=== PATIENT | female | born 1965 | race Caucasian/White ===

== ENCOUNTER 2016-07-08 16:21 | Emergency (ER) | payer MEDICARE, BC ==
[~2016-07-08] VITALS: Ht 154.9 cm; Wt 80.0 kg
[~2016-07-08 16:21] MED LIST: ADVAI100I INH; ALBU0.086 NEB; BIOT300T PO; BUSP7.5T4 PO; CLON1TAB PO; CYMB30CA PO; FLUT50SP EACH NARE; HYDR0.1S8 PO; IBUP800 PO; LEVO.1 PO; OMEP20TA PO; ONDA4 PO; OXYC5 PO; PRED20 PO; ZYRT10TA12 PO
[2016-07-08 16:24] VITALS: BP 138/90; PULSE 120; RESP 20; TEMP 98; O2SAT 97
--- NOTE | 2016-07-08 17:06 | PD ---
Physical Exam Time Seen by Provider: 17:06 Narrative 51 year old female presents to ED for evaluation. History of asthma and COPD. No longer smoking tobacco cigarettes. Recently finished second round of treatment for pneumonia. Cousin was just diagnosed with streptococcal pneumonia and is in ICU. Pt states that Dr. Rodriguez advised she come to ED for re- evaluation. Continues to have cough. Subjective fever and chills. N/V. no diarrhea. Data Data Last Documented VS Vital Signs Date Time Temp Pulse Resp B/P Pulse Ox O2 Delivery O2 Flow Rate FiO2 07/08/16 16:24 98.0 120 20 138/90 97 Room Air Orders Complete Blood Count With Diff (07/08/16 17:12) Basic Metabolic Panel (Bmp) (07/08/16 17:12) Chest, Single Ap (07/08/16 ) Labs Laboratory Tests Test 07/08/16 18:05 White Blood Count 16.7 TH/MM3 Red Blood Count 4.75 MIL/MM3 Hemoglobin 14.5 GM/DL Hematocrit 43.2 % Mean Corpuscular Volume 91.1 FL Mean Corpuscular Hemoglobin 30.6 PG Mean Corpuscular Hemoglobin 33.6 % Concent Red Cell Distribution Width 14.4 % Platelet Count 311 TH/MM3 Mean Platelet Volume 8.0 FL Neutrophils (%) (Auto) 82.8 % Lymphocytes (%) (Auto) 12.2 % Monocytes (%) (Auto) 4.3 % Eosinophils (%) (Auto) 0.3 % Basophils (%) (Auto) 0.4 % Neutrophils # (Auto) 13.8 TH/MM3 Lymphocytes # (Auto) 2.0 TH/MM3 Monocytes # (Auto) 0.7 TH/MM3 Eosinophils # (Auto) 0.0 TH/MM3 Basophils # (Auto) 0.1 TH/MM3 CBC Comment DIFF FINAL Differential Comment Sodium Level 137 MEQ/L Potassium Level 3.8 MEQ/L Chloride Level 102 MEQ/L Carbon Dioxide Level 26.8 MEQ/L Anion Gap 8 MEQ/L Blood Urea Nitrogen 15 MG/DL Creatinine 1.01 MG/DL Estimat Glomerular Filtration 58 ML/MIN Rate Random Glucose 97 MG/DL Calcium Level 8.9 MG/DL [facility] Medical Record Reviewed: Yes Supervised Visit with MARLA: No Narrative Course Work up initiated in triage. Condition: Stable Tayler Webster Jul 08, 2016 17:06
--- NOTE | 2016-07-08 18:30 | RADRPT ---
EXAM DATE/TIME: 07/08/2016 18:04 [facility] COMPARISON: No previous studies available for comparison. INDICATIONS : Fever. MEDICAL HISTORY : Chronic obstructive pulmonary disease. asthma, recent pneumonia diagnosis. SURGICAL HISTORY : CABG. ENCOUNTER: [facility] ACUITY: 1 month PAIN SCORE: 0/10 LOCATION: Bilateral chest FINDINGS: A single view of the chest demonstrates the lungs to be symmetrically aerated without evidence of mas s, infiltrate or effusion. Status post CABG. The cardiomediastinal contours are unremarkable. [place] us structures are intact. CONCLUSION: No acute disease. Darshan Hatfield MD on July 08, 2016 at 18:28 Board Certified Radiologist. This report was verified electronically.
[2016-07-08 18:52] LABS: AUTOMATED NEUTROPHIL # 13.8 TH/MM3 (1.8-7.7); BASOPHIL # 0.1 TH/MM3 (0-0.2); BASOPHIL % 0.4 % (0.0-2.0); EOSINOPHIL % 0.3 % (0.0-4.0); HEMATOCRIT 43.2 % (35.0-46.0); HEMO FLAGS DIFF FINAL; LYMPH % 12.2 % (9.0-44.0); MEAN CELL VOLUME 91.1 FL (80.0-100.0); MEAN CORPUSCULAR HEMOGLOBIN 30.6 PG (27.0-34.0); MEAN CORPUSCULAR HGB CONC 33.6 % (32.0-36.0); MONO % 4.3 % (0.0-8.0); NEUT % 82.8 % (16.0-70.0); PLATELET COUNT 311 TH/MM3 (150-450); RED BLOOD COUNT 4.75 MIL/MM3 (4.00-5.30); RED CELL DISTRIBUTION WIDTH 14.4 % (11.6-17.2); WHITE BLOOD COUNT 16.7 TH/MM3 (4.0-11.0)
[2016-07-08 19:09] LABS: BICARBONATE 26.8 MEQ/L (21.0-32.0); POTASSIUM 3.8 MEQ/L (3.5-5.1)
[2016-07-08 19:53] VITALS: BP 114/59; PULSE 72; RESP 18; TEMP 98.4; O2SAT 97
[2016-07-08] MEDS ORDERED: TUSSSUS2 PO (20:31)
--- NOTE | 2016-07-08 20:32 | PD ---
HPI . Patient presents stating that she has had pneumonia since May. Chief Complaint: Respiratory Symptoms Time Seen by Provider: 20:11 Travel History International Travel<30 days: No Contact w/Intl Traveler<30days: No Traveled to known affect area: No History of Present Illness HPI Patient states that she has had cough and shortness of breath since May. She states that she was diagnosed with pneumonia in [place] and treated with a Z-Nicolas and prednisone. Her symptoms persisted so she saw her primary care provider about a week ago was treated with Levaquin and another prednisone taper. Both prednisone tapers for 10 day long tapers. Despite that, her symptoms persist. She states she got a phone call today that she has a niece he 's been in the ICU [place] with strep pneumonia. She called her doctor's office with this information this afternoon and was instructed to come here for further evaluation. Her major symptom is persistent congested cough. She also reports some subjective fevers. She does not have any sputum production. Patient has a history of COPD and is on several medications for same. PFSH Past Medical History Arthritis: Yes Asthma: Yes Anxiety: Yes Depression: Yes COPD: Yes Diminished Hearing: No Endocrine: Yes (PITUITARY INSUFFICIENCY) Fibromyalgia: Yes Gastrointestinal Disorders: Yes (IBS WITH CONSTIPATION) Headaches: Yes Respiratory: Yes (PNEUMONIA ) Immunizations Current: Yes Tetanus Vaccination: < 5 Years Influenza Vaccination: Yes ?: Not Past Surgical History Abdominal Surgery: Yes (HERNIA REPAIR) Genitourinary Surgery: Yes (urethral stenting as child) Gynecologic Surgery: Yes (DERMOIDS REMOVED FROM OVARIES) Hysterectomy: Yes Other Surgery: Yes (sternotomy) Social History Alcohol Use: Yes (RARELY) Tobacco Use: No Substance Use: No Allergies-Medications (Allergen,Severity, Reaction): Coded Allergies: Contrast Media (Verified Allergy, Severe, 07/08/16) ANAPHYLAXIS Sulfa (Verified Allergy, Severe, 07/08/16) HIVES Trazodone (Verified Allergy, Severe, 07/08/16) HIVES Reported Meds & Prescriptions Reported Meds & Active Scripts Active Review of Systems Except as stated in HPI: all other systems reviewed are Neg General / Constitutional: Positive: Fever, Chills Respiratory: Positive: Cough, Shortness of Breath Physical Exam Narrative GENERAL: Patient is able to speak in complete sentences without any respiratory difficulty. SKIN: Warm and dry. HEAD: Atraumatic. Normocephalic. EYES: Pupils equal and round. ENT: No nasal bleeding or discharge. Mucous membranes pink and moist. NECK: Trachea midline. CARDIOVASCULAR: Regular rate and rhythm. Heart sounds are normal. RESPIRATORY: No accessory muscle use. Lungs are clear with full air movement throughout. GASTROINTESTINAL: Abdomen soft, non-tender, nondistended. MUSCULOSKELETAL: No obvious deformities. No edema. NEUROLOGICAL: Awake and alert. No obvious cranial nerve deficits. Motor grossly within normal limits. Normal speech. PSYCHIATRIC: Appropriate mood and affect; insight and judgment normal. Data Data Last Documented VS Vital Signs Date Time Temp Pulse Resp B/P Pulse Ox O2 Delivery O2 Flow Rate FiO2 07/08/16 19:53 98.4 72 18 114/59 97 Room Air Orders Complete Blood Count With Diff (07/08/16 17:12) Basic Metabolic Panel (Bmp) (07/08/16 17:12) Chest, Single Ap (07/08/16 ) Labs Laboratory Tests Test 07/08/16 18:05 White Blood Count 16.7 TH/MM3 Red Blood Count 4.75 MIL/MM3 Hemoglobin 14.5 GM/DL Hematocrit 43.2 % Mean Corpuscular Volume 91.1 FL Mean Corpuscular Hemoglobin 30.6 PG Mean Corpuscular Hemoglobin 33.6 % Concent Red Cell Distribution Width 14.4 % Platelet Count 311 TH/MM3 Mean Platelet Volume 8.0 FL Neutrophils (%) (Auto) 82.8 % Lymphocytes (%) (Auto) 12.2 % Monocytes (%) (Auto) 4.3 % Eosinophils (%) (Auto) 0.3 % Basophils (%) (Auto) 0.4 % Neutrophils # (Auto) 13.8 TH/MM3 Lymphocytes # (Auto) 2.0 TH/MM3 Monocytes # (Auto) 0.7 TH/MM3 Eosinophils # (Auto) 0.0 TH/MM3 Basophils # (Auto) 0.1 TH/MM3 CBC Comment DIFF FINAL Differential Comment Sodium Level 137 MEQ/L Potassium Level 3.8 MEQ/L Chloride Level 102 MEQ/L Carbon Dioxide Level 26.8 MEQ/L Anion Gap 8 MEQ/L Blood Urea Nitrogen 15 MG/DL Creatinine 1.01 MG/DL Estimat Glomerular Filtration 58 ML/MIN Rate Random Glucose 97 MG/DL Calcium Level 8.9 MG/DL [facility] Medical Decision Making Medical Screen Exam Complete: Yes Emergency Medical Condition: Yes Differential Diagnosis Differential diagnosis includes but is not limited to viral respiratory illness , bronchitis, pneumonia, allergies, CHF, asthma/COPD. Narrative Course Patient presented for evaluation of possible pneumonia. Chest x-ray is negative for infiltrate. Chest x-ray was independently viewed by me. White blood count is 16.7 but the patient is currently on steroids. Chemistries are unremarkable. Heart rate has been 18-20 and her room air saturation has been 96-97%. Clinically, the patient does not have pneumonia. She has just completed a course of Zithromax followed by a course of Levaquin. The patient is already on beta agonist inhalers and nebs and a a steroid inhaler. I will add Tussionex. Diagnosis Primary Impression: Cough Scripts Hydrocodone-Chlorpheniramine 12 HR Liq (Tussionex Pennkinetic Ext 12 HR Liq)10- 8 Mg/5 Ml Susp5 Ml PO Q12H PRN (COUGH AND/OR COLD SYMPTOMS) #60 ML Ref 0 Prov:Isabelle Heath MD 07/08/16 Disposition: 01 DISCHARGE HOME Condition: Stable Isabelle Heath MD Jul 08, 2016 20:32
[2016-07-08 20:48] VITALS: BP 114/59; PULSE 81; RESP 18; O2SAT 96
== END 2016-07-08 20:49 | disposition home or self-care (01) ==
LOC: NEPC 16:21
DX: R05 Cough (principal); R06.02 Shortness of breath; J44.9 Chronic obstructive pulmonary disease, unspecified; J45.909 Unspecified asthma, uncomplicated; Z87.891 Personal history of nicotine dependence; M79.7 Fibromyalgia
CPT/HCPCS: 71010; 80048; 85025; 99283

== ENCOUNTER 2017-06-03 19:46 | Emergency (ER) | payer MEDICARE, BC ==
[~2017-06-03] VITALS: Ht 154.9 cm; Wt 87.7 kg
[~2017-06-03 19:46] MED LIST changes: -ADVAI100I INH; -ALBU0.086 NEB; -BIOT300T PO; -BUSP7.5T4 PO; -CLON1TAB PO; -CYMB30CA PO; -FLUT50SP EACH NARE; -HYDR0.1S8 PO; -IBUP800 PO; -LEVO.1 PO; -OMEP20TA PO; -ONDA4 PO; -OXYC5 PO; -PRED20 PO; +TUSSSUS2 PO; -ZYRT10TA12 PO
[2017-06-03 19:51] VITALS: BP 123/86; PULSE 122; RESP 18; TEMP 98.8; O2SAT 99
--- NOTE | 2017-06-03 20:13 | PD ---
HPI Chief Complaint: Pain: Acute or Chronic Time Seen by Provider: 19:56 Travel History International Travel<30 days: No Contact w/Intl Traveler<30days: No Traveled to known affect area: No History of Present Illness HPI The patient is a 51-year-old female that had a rotator cuff surgery redo in March. She states it started getting red and warm around the area of incision but also around the entire neck and shoulder. She says it feels exactly the same as when she had a previous pulmonary embolus. She denies any shortness of breath but does have a persistent tachycardia. She denies any chest pain, syncopal or near syncopal spells or hemoptysis. She states she cannot have any IV contrast for CAT scans because she is allergic to many IV contrast dyes. The patient does have a history of anxiety and is on multiple medications for this. PFSH Past Medical History Arthritis: Yes Asthma: Yes Anxiety: Yes Depression: Yes COPD: Yes Diminished Hearing: No Endocrine: Yes (PITUITARY INSUFFICIENCY) Fibromyalgia: Yes Gastrointestinal Disorders: Yes (IBS WITH CONSTIPATION) Headaches: Yes Respiratory: Yes (PNEUMONIA ) Immunizations Current: Yes ?: Not Past Surgical History Abdominal Surgery: Yes (HERNIA REPAIR) Genitourinary Surgery: Yes (urethral stenting as child) Gynecologic Surgery: Yes (DERMOIDS REMOVED FROM OVARIES) Hysterectomy: Yes Other Surgery: Yes (sternotomy) Social History Alcohol Use: Yes (RARELY) Tobacco Use: No Substance Use: No Allergies-Medications (Allergen,Severity, Reaction): Coded Allergies: Iodinated Contrast- Oral and IV Dye (Verified Allergy, Severe, 06/03/17) Sulfa (Sulfonamide Antibiotics) (Verified Allergy, Severe, 06/03/17) HIVES diatrizoate meglumine (Verified Allergy, Severe, 06/03/17) ANAPHYLAXIS gadobenic acid (Verified Allergy, Severe, 06/03/17) ANAPHYLAXIS gadodiamide (Verified Allergy, Severe, 06/03/17) ANAPHYLAXIS gadoteridol (Verified Allergy, Severe, 06/03/17) ANAPHYLAXIS iodixanol (Verified Allergy, Severe, 06/03/17) ANAPHYLAXIS iohexol (Verified Allergy, Severe, 06/03/17) ANAPHYLAXIS trazodone (Verified Allergy, Severe, 06/03/17) HIVES Reported Meds & Prescriptions Reported Meds & Active Scripts Active Clindamycin (Clindamycin HCl) 300 Mg Cap 300 Mg PO Q6H 10 Days Doxycycline Hyclate 100 Mg Cap 100 Mg PO BID Reported Cetirizine (Cetirizine HCl) 10 Mg Tab 10 Mg PO DAILY Hydrochlorothiazide 12.5 Mg Cap 12.5 Mg PO DAILY Myrbetriq (Mirabegron) 25 Mg Tab 25 Mg PO DAILY Simvastatin 40 Mg Tab 40 Mg PO HS Lyrica (Pregabalin) 100 Mg Cap 100 Mg PO BID Abilify (Aripiprazole) 2 Mg Tab 2.5 Mg PO DAILY Symbicort Inh (Budesonide/Formoterol Fumarate) 160-4.5 Mcg/Act Aero 1 Puff INH DAILY Linzess (Linaclotide) 290 Mcg Cap 290 Mcg PO DAILY Buspirone (Buspirone HCl) 10 Mg Tab 10 Mg PO BID Prednisone 20 Mg Tab 20 Mg PO DIRECTED 40 MG twice a day x 3 days, then 20 MG daily x 3 days, then 10 MG daily x 3 days Fluticasone Nasal [place] 50 Mcg/Act Naspr 50 Mcg EACH NARE BID 50 mcg/spray Biotin 5 Mg Cap 10,000 Mcg PO DAILY Omeprazole 20 Mg Tab 20 Mg PO DAILY Motrin Ib (Ibuprofen) 200 Mg Tablet 800 Tab PO DIRECTED Hydrocodone-Acetaminophen 5-325 mg Tab 1 Tab PO TID PRN Ventolin Hfa 18 GM Inh (Albuterol Sulfate) 90 Mcg/Act Aer 2 Puff INH Q4H PRN Clonazepam 1 Mg Tab 1 Mg PO HS Synthroid (Levothyroxine Sodium) 100 Mcg Tab 100 Mcg PO DAILY Cymbalta DR (Duloxetine HCl) 60 Mg Capdr 120 Mg PO DAILY Ondansetron (Ondansetron HCl) 8 Mg Tab 8 Mg PO DIRECTED Review of Systems Except as stated in HPI: all other systems reviewed are Neg Physical Exam Narrative GENERAL: The patient is alert, oriented 3 in moderate apparent distress with her left shoulder discomfort. Her vital signs show tachycardia of 122 but otherwise normal. SKIN: Focused skin assessment warm/dry. There is localized erythema around the incision site to approximately 10 cm diameter. The area is warm but there is no associated fluctuance or abscess formation evident. HEAD: Atraumatic. Normocephalic. EYES: Pupils equal and round. No scleral icterus. No injection or drainage. ENT: No nasal bleeding or discharge. Mucous membranes pink and moist. NECK: Trachea midline. No JVD. CARDIOVASCULAR: Regular rate and rhythm. No murmur appreciated. RESPIRATORY: No accessory muscle use. Clear to auscultation. Breath sounds equal bilaterally. GASTROINTESTINAL: Abdomen soft, non-tender, nondistended. Hepatic and splenic margins not palpable. MUSCULOSKELETAL: No obvious deformities. No clubbing. No cyanosis. No edema. NEUROLOGICAL: Awake and alert. No obvious cranial nerve deficits. Motor grossly within normal limits. Normal speech. PSYCHIATRIC: Appropriate mood and affect; insight and judgment normal. Data Data Last Documented VS Vital Signs Date Time Temp Pulse Resp B/P (MAP) Pulse Ox O2 Delivery O2 Flow Rate FiO2 06/03/17 22:13 113 16 118/82 (94) 99 Room Air 06/03/17 19:51 98.8 Orders Orders Ventilation & Perfusion Scan (06/03/17 ) Complete Blood Count With Diff (06/03/17 20:13) Basic Metabolic Panel (Bmp) (06/03/17 20:13) D-Dimer (06/03/17 20:13) Electrocardiogram (06/03/17 20:13) Chest, Pa & Lat (06/03/17 21:53) Oxycodone-Acetamin 5-325 Mg (Percocet (06/03/17 22:30) Ed Discharge Order (06/03/17 22:37) Doxycycline (Vibramycin) (06/03/17 22:45) Clindamycin 600 Mg/Ns Premix (Cleocin 60 (06/03/17 22:45) Labs Laboratory Tests Test 06/03/17 20:41 White Blood Count 8.8 TH/MM3 Red Blood Count 4.45 MIL/MM3 Hemoglobin 13.2 GM/DL Hematocrit 40.7 % Mean Corpuscular Volume 91.6 FL Mean Corpuscular Hemoglobin 29.7 PG Mean Corpuscular Hemoglobin Concent 32.4 % Red Cell Distribution Width 14.2 % Platelet Count 303 TH/MM3 Mean Platelet Volume 7.6 FL Neutrophils (%) (Auto) 64.8 % Lymphocytes (%) (Auto) 23.2 % Monocytes (%) (Auto) 6.5 % Eosinophils (%) (Auto) 4.8 % Basophils (%) (Auto) 0.7 % Neutrophils # (Auto) 5.7 TH/MM3 Lymphocytes # (Auto) 2.0 TH/MM3 Monocytes # (Auto) 0.6 TH/MM3 Eosinophils # (Auto) 0.4 TH/MM3 Basophils # (Auto) 0.1 TH/MM3 CBC Comment DIFF FINAL Differential Comment D-Dimer Quantitative (PE/DVT) 0.33 MG/L FEU Blood Urea Nitrogen 11 MG/DL Creatinine 0.81 MG/DL Random Glucose 101 MG/DL Calcium Level 8.8 MG/DL Sodium Level 138 MEQ/L Potassium Level 3.3 MEQ/L Chloride Level 103 MEQ/L Carbon Dioxide Level 27.0 MEQ/L Anion Gap 8 MEQ/L Estimat Glomerular Filtration Rate 75 ML/MIN MDM Medical Decision Making Medical Screen Exam Complete: Yes Emergency Medical Condition: Yes Medical Record Reviewed: Yes Interpretation(s) The d-dimer is normal. The EKG shows sinus tachycardia of [address] elevation or depression. The VQ scan is negative for pulmonary embolus. Differential Diagnosis Anxiety, pulmonary embolus, cellulitis left shoulder, electrolyte disorder Narrative Course The patient appears to have cellulitis of the left shoulder. There is no evidence of pulmonary embolus either from the d-dimer or the VQ scan. It is now 10:51 PM and the heart rate is below 100. When I walk in the room her heart rate goes up to slightly above 100. This appears (the heart rate) to be anxiety and not related to pulmonary embolus or infection. The white count is normal and one would expect the white count to be elevated if it caused the heart rate to be elevated. Also her temperature is been normal. Diagnosis Primary Impression: Cellulitis of left upper extremity Additional Instructions: Follow-up with your primary care physician about the cellulitis. He doxycycline is taken one tablet twice daily for 10 days. The clindamycin is taken one tablet 4 times daily for 10 days. Med/Other Pt SpecificInfo: Prescription(s) given Scripts Clindamycin (Clindamycin) 300 Mg Cap 300 MG PO Q6H for Infection for 10 Days, #40 CAP 0 Refills Prov: Brennan Garner MD 06/03/17 Doxycycline Hyclate (Doxycycline Hyclate) 100 Mg Cap 100 MG PO BID for Infection, #20 CAP 0 Refills Prov: Brennan Garner MD 06/03/17 Disposition: 01 DISCHARGE HOME Brennan Garner MD Jun 03, 2017 20:13
[2017-06-03 20:55] LABS: AUTOMATED NEUTROPHIL # 5.7 TH/MM3 (1.8-7.7); BASOPHIL # 0.1 TH/MM3 (0-0.2); BASOPHIL % 0.7 % (0.0-2.0); EOSINOPHIL # 0.4 TH/MM3 (0-0.4); EOSINOPHIL % 4.8 % (0.0-4.0); HEMATOCRIT 40.7 % (35.0-46.0); LYMPH % 23.2 % (9.0-44.0); MEAN CELL VOLUME 91.6 FL (80.0-100.0); MEAN CORPUSCULAR HEMOGLOBIN 29.7 PG (27.0-34.0); MEAN CORPUSCULAR HGB CONC 32.4 % (32.0-36.0); MONO % 6.5 % (0.0-8.0); NEUT % 64.8 % (16.0-70.0); PLATELET COUNT 303 TH/MM3 (150-450); RED BLOOD COUNT 4.45 MIL/MM3 (4.00-5.30); RED CELL DISTRIBUTION WIDTH 14.2 % (11.6-17.2); WHITE BLOOD COUNT 8.8 TH/MM3 (4.0-11.0)
[2017-06-03 21:01] LABS: HEMO FLAGS DIFF FINAL; POTASSIUM 3.3 MEQ/L (3.5-5.1)
[2017-06-03] MEDS ORDERED: IBUP-1129 PO (21:38)
[2017-06-03] MEDS ORDERED: HYDR-3516 PO (21:38)
[2017-06-03] MEDS ORDERED: CLON1TAB PO (21:38)
[2017-06-03] MEDS ORDERED: ONDA8TAB7 PO (21:38)
[2017-06-03] MEDS ORDERED: VENTAER INH (21:38)
[2017-06-03] MEDS ORDERED: LEVO.1 PO (21:38)
[2017-06-03] MEDS ORDERED: OMEP20TA93 PO (21:38)
[2017-06-03] MEDS ORDERED: CYMB60CA PO (21:38)
[2017-06-03] MEDS ORDERED: ARIP2 PO (21:48)
[2017-06-03] MEDS ORDERED: SYMB160A INH (21:48)
[2017-06-03] MEDS ORDERED: FLUT50SP EACH NARE (21:48)
[2017-06-03] MEDS ORDERED: CETI10 PO (21:48)
[2017-06-03] MEDS ORDERED: BIOTCAP PO (21:48)
[2017-06-03] MEDS ORDERED: PRED20 PO (21:48)
[2017-06-03] MEDS ORDERED: MIRA25TA PO (21:48)
[2017-06-03] MEDS ORDERED: LYRI100C PO (21:48)
[2017-06-03] MEDS ORDERED: LINA290C PO (21:48)
[2017-06-03] MEDS ORDERED: HYDR12.57 PO (21:48)
[2017-06-03] MEDS ORDERED: SIMV40TA PO (21:48)
[2017-06-03] MEDS ORDERED: BUSP10TA PO (21:48)
[2017-06-03 22:13] VITALS: BP 118/82; PULSE 113; RESP 16; O2SAT 99
--- NOTE | 2017-06-03 22:16 | RADRPT ---
EXAM DATE/TIME: 06/03/2017 21:15 [facility] COMPARISON: No previous studies available for comparison. INDICATIONS : Left shoulder is red and warm. Dyspnea. DOSE: 8.8 mCi Tc99m MAA IV 1.2 mCi Tc99m DTPA aerosol MEDICAL HISTORY : Chronic obstructive pulmonary disease. Pulmonary embolism. SURGICAL HISTORY : Hysterectomy. Left rotator cuff. ENCOUNTER: Initial ACUITY: 1 day PAIN SCALE: 0/10 LOCATION: chest TECHNIQUE: Following five minutes of tidal breathing of DTPA aerosol, planar images of the lungs were performed in eight projections. The patient was then injected with MAA, and eight-view perfusion scan was perf ormed. FINDINGS: There is a homogeneous pattern of aerosol delivery to the periphery of both lungs. No focal ventilat ory defects are seen. The perfusion lung scan demonstrates a homogenous pattern of uptake in both lungs. No segmental or s ubsegmental defects are seen. CONCLUSION: 1. Negative for pulmonary embolus. Abrahan Parsons MD on June 03, 2017 at 22:13 Board Certified Radiologist. This report was verified electronically.
[2017-06-03] MEDS ORDERED: oxyCODONE/ACETAMINOPHEN 5 MG/325 MG TAB PO ONE (22:30)
[2017-06-03] MEDS ORDERED: DOXY100C PO (22:42)
[2017-06-03] MEDS ORDERED: CLIN300C5 PO (22:44)
[2017-06-03] MEDS ORDERED: DOXYCYCLINE HYCLATE 100 MG CAP PO ONE (22:45)
[2017-06-03] MEDS ORDERED: CLINDAMYCIN 600 MG/NS PREMIX 50 ML IV ONE (22:45)
--- NOTE | 2017-06-03 23:06 | RADRPT ---
EXAM DATE/TIME: 06/03/2017 22:03 [facility] COMPARISON: No previous studies available for comparison. INDICATIONS : Patient is having chest pain that is radiating to her scapular area and down back since yesterday. MEDICAL HISTORY : Chronic obstructive pulmonary disease. asthma, recent pneumonia diagnosis. SURGICAL HISTORY : CABG. ENCOUNTER: Initial ACUITY: 1 day PAIN SCORE: 10/10 LOCATION: Left chest FINDINGS: Better seen on the lateral view there is a focal area of consolidation in one of the lower lobes, pro bably the left lower lobe. No effusion. No pneumothorax. CONCLUSION: 1. Focal consolidation left lower lobe anteriorly. Differential diagnosis includes bronchopneumonia. Postop median sternotomy. Abrahan Parsons MD on June 03, 2017 at 23:02 Board Certified Radiologist. This report was verified electronically.
[2017-06-04 00:09] VITALS: BP 106/74
--- NOTE | 2017-06-05 12:04 | EKG ---
Date Performed: 06/03/2017 Time Performed: 20:22:26 PTAGE: 51 years EKG: SINUS TACHYCARDIA POSSIBLE LEFT ATRIAL ENLARGEMENT POSSIBLE RIGHT VENTRICULAR CONDUCTION DE LAY NONSPECIFIC ST & T-WAVE ABNORMALITY ABNORMAL RHYTHM ECG NO PREVIOUS TRACING DOCTOR: Sugey Howe Interpretating Date/Time 06/05/2017 12:04:09
== END 2017-06-04 00:11 | disposition home or self-care (01) ==
LOC: PHED 19:46
DX: L03.114 Cellulitis of left upper limb (principal); R00.0 Tachycardia, unspecified; F41.9 Anxiety disorder, unspecified; M79.7 Fibromyalgia; J44.9 Chronic obstructive pulmonary disease, unspecified
CPT/HCPCS: 71020; 78582; 80048; 85025; 85379; 93005; 96365; 99285; A9540; A9567

== ENCOUNTER → 2017-08-03 | Outpatient (CLI) | payer MEDICARE, BC ==
[~2017-08-03] MED LIST changes: +ARIP2 PO; +BIOTCAP PO; +BUSP10TA PO; +CETI10 PO; +CLIN300C5 PO; +CLON1TAB PO; +CYMB60CA PO; +DOXY100C PO; +FLUT50SP EACH NARE; +HYDR-3516 PO; +HYDR12.57 PO; +IBUP-1129 PO; +LEVO.1 PO; +LINA290C PO; +LYRI100C PO; +MIRA25TA PO; +OMEP20TA93 PO; +ONDA8TAB7 PO; +PRED20 PO; +SIMV40TA PO; +SYMB160A INH; -TUSSSUS2 PO; +VENTAER INH
[2017-08-03 16:47] LABS: ALBUMIN 3.9 GM/DL (3.4-5.0); ALT (GPT) 29 U/L (10-53); AST (GOT) 19 U/L (15-37); BICARBONATE 24.9 MEQ/L (21.0-32.0); BLOOD UREA NITROGEN 12 MG/DL (7-18); CALCIUM 8.8 MG/DL (8.5-10.1); CHLORIDE 106 MEQ/L (98-107); CHOLESTEROL 220 MG/DL (120-200); CREATININE 0.94 MG/DL (0.50-1.00); GLOMERULAR FILTRATION RATE 63 ML/MIN (>89); GLUCOSE,FASTING 90 MG/DL (74-99); SODIUM (NA) 139 MEQ/L (136-145)
[2017-08-03 16:56] LABS: ALKALINE PHOSPHATASE 66 U/L (45-117); FREE T4 1.21 NG/DL (0.76-1.46); HDL CHOLESTEROL 42.3 MG/DL (40.0-60.0); LDL CHOLESTEROL 144 MG/DL (0-99); TOTAL BILIRUBIN ADULT 0.2 MG/DL (0.2-1.0); TRIGLYCERIDES 168 MG/DL (42-150)
== END ==
LOC: CLAB 15:06
PROVIDERS: ATTEND Family Medicine
DX: E03.9 Hypothyroidism, unspecified (principal); E78.2 Mixed hyperlipidemia; Z86.711 Personal history of pulmonary embolism
CPT/HCPCS: 36415; 80053; 80061; 84439; 84443; 85379

== ENCOUNTER → 2017-09-08 | Outpatient (CLI) | payer MEDICARE, BC ==
--- NOTE | 2017-09-13 11:13 | RSPPFT ---
DATE OF PROCEDURE: 09/08/17 COMMENTS: VOLUMES DYNAMIC: FVC moderately reduced, FEV1 severely reduced. STATIC: TLC, FRC normal; RV very mildly increased. FLOWS: FEV1% moderately reduced; FEF 25-75 severely reduced. DIFFUSION: Mildly reduced. FLOW VOLUME LOOP: Pattern of variable intrathoracic airways obstruction. IMPRESSION: Moderately severe obstructive ventilatory defect with a mild reduction in diffusion and mild hyperinflation. Minimal change post-bronchodilator.
== END ==
LOC: HRSP 10:33
PROVIDERS: ATTEND Internal Medicine
DX: J44.9 Chronic obstructive pulmonary disease, unspecified (principal)
CPT/HCPCS: 94060; 94618; 94726; 94729